=== PATIENT | male | born 1960 | race Caucasian/White ===

== ENCOUNTER 2020-08-07 15:17 | Inpatient (IN) | payer OTHER ==
[~2020-08-07] VITALS: Ht 182.9 cm; Wt 118.6 kg
[2020-08-07] VITALS (187 sets, daily range): BP systolic 141–150; BP diastolic 103–121; PULSE 86–94; TEMP 99–99.1; O2SAT 92–100
--- NOTE | 2020-08-07 15:15 | NUR ---
PT ARRIVES AND AMBULATES TO ICU 6. CHANGED INTO GOWN AND PLACED ON BEDSIDE CONTINUOUS MONITOR. CALL LIGHT EDUCATION GIVEN, VERBALIZED UNDERSTANDING, PLACED WITHIN REACH. URINAL WITHIN REACH. DISCUSSED POC WITH PT, VERBALIZED UNDERSTANDING. VSS.
[2020-08-07] MEDS ORDERED: LOPRESSOR 550 MG/TAB PO (15:55)
[2020-08-07] MEDS ORDERED: LASIX 40MG TABL40 MG PO (15:56)
[2020-08-07] MEDS ORDERED: XARELTO20 MG PO (15:56)
[2020-08-07] MEDS ORDERED: ASPIRIN 81M81 MG/TA2 PO (15:57)
[2020-08-07] MEDS ORDERED: NORVASC 5MG5 MG/TAB PO ×2 (15:57→16:31)
--- NOTE | 2020-08-07 16:25 | NUR ---
SRI GONZALEZ AT BEDSIDE FOR ASSESSMENT AND DISCUSSING POC WITH PT.
[2020-08-07 16:38] LABS: BASO # 0.1 (0.0-0.2); BASO % 0.7 % (0.0-2.0); EOS # 0.1 (0.0-0.7); EOS % 1.2 % (0-4.0); GRAN # 4.9 (1.4-6.5); GRAN % 71.3 % (42.2-75.2); HEMATOCRIT 42.9 % (42.0-52.0); HEMOGLOBIN 13.9 g/dl (13.5-18.0); LYMPH # 1.3 (1.2-3.4); LYMPH % 18.5 % (20.0-51.0); MEAN CELL VOLUME 91 fl (80.0-100.0); MEAN CORPUSCULAR HEMOGLOBIN 30 pg (27.0-31.0); MEAN CORPUSCULAR HGB CONC 32 g/dl (33.0-37.0); MEAN PLATELET VOLUME 10.2 fl (7.4-10.4); MONO # 0.6 (0.1-0.6); MONO % 7.9 % (1.7-9.3); PLATELET COUNT 274 K/mm3 (130-400); REDCELL DISTRIBUTION WIDTH-CV 16.7 % (11.5-14.5)
[2020-08-07 16:55] LABS: ALANINE AMINOTRANSFERASE 23 U/L (4-49); ALBUMIN 4.4 gm/dL (3.5-5.0); ALKALINE PHOSPHATASE 92 U/L (50-136); ANION GAP 11 mmol/L (7-16); AST,SGOT 40 U/L (15-37); BILIRUBIN,TOTAL 1.6 mg/dL (0.0-1.0); BLOOD UREA NITROGEN 25 mg/dL (9-20); CALCIUM 9.2 mg/dL (8.4-10.2); CARBON DIOXIDE 24 mmol/L (22-30); CHLORIDE 102 mmol/L (98-107); CREATININE, serum 1.28 (0.66-1.25); GLUCOSE 104 mg/dL (74-106); PHOSPHOROUS 4.7 mg/dL (2.5-4.5); POTASSIUM 4.5 mmol/L (3.4-5.0); SODIUM 137 mmol/L (137-145); TOTAL PROTEIN 7.9 gm/dL (6.4-8.2)
--- NOTE | 2020-08-07 17:00 | NUR ---
PT HAS CLOTHES, SHOES, PHONE AND WALLET. PT DENIES SAFE AT THIS TIME.
[2020-08-07] MEDS ORDERED: ZYRTEC ALLERGY10 MG PO (17:01)
[2020-08-07 17:09] LABS: TROPONIN-I < 0.012 ng/mL (0.000-0.035)
[2020-08-07 18:20] LABS: MAGNESIUM 1.9 mg/dL (1.6-2.3)
[2020-08-08] VITALS (563 sets, daily range): BP systolic 137–164; BP diastolic 88–137; PULSE 85–160; TEMP 97.5–98.8; O2SAT 88–100
[2020-08-08 05:31] LABS: HEMATOCRIT 41.8 % (42.0-52.0); HEMOGLOBIN 13.5 g/dl (13.5-18.0); MEAN CELL VOLUME 92 fl (80.0-100.0); MEAN CORPUSCULAR HEMOGLOBIN 30 pg (27.0-31.0); MEAN CORPUSCULAR HGB CONC 32 g/dl (33.0-37.0); MEAN PLATELET VOLUME 9.8 fl (7.4-10.4); PLATELET COUNT 245 K/mm3 (130-400); RED BLOOD COUNT 4.54 M/mm3 (4.20-5.60); REDCELL DISTRIBUTION WIDTH-CV 16.4 % (11.5-14.5)
[2020-08-08 05:40] LABS: INR 1.6 (0.8-3.0); PROTHROMBIN TIME 17.5 SECONDS (9.7-12.8)
[2020-08-08 05:42] LABS: CALCIUM 8.8 mg/dL (8.4-10.2); CREATININE, serum 1.12 (0.66-1.25); PARTIAL THROMBOPLASTIN TIME 35.5 SECONDS (26.0-37.0); POTASSIUM 4.3 mmol/L (3.4-5.0)
--- NOTE | 2020-08-08 07:10 | NUR ---
RECEIVED REPORT FROM DASH BELLE. PT RESTING EASILY. CALL LIGHT WITHIN REACH. SEE GTT FLOWSHEET. URINAL WITHIN REACH.
--- NOTE | 2020-08-08 11:29 | NUR ---
Plan to return home independently in [facility]. SW met with patient and DTR Lorna in the room. Patient gave permission to speak infront of DTR, patient reports that he is fairly independent and does not use any DME or services for care. Patient indicated that he drives and that his dtr will transport home. Patient reports that he does not have a PCP but uses [facility] for medications. Patient reports that he has another DTR contact Kasia . Patient reports that he is not opposed to home health if needed. Patient was provided DPOA ppw and educated on use. Will follow up with patient for care.
--- NOTE | 2020-08-08 12:15 | NUR ---
First visit from the transaction processor. prayed with patient. No other needs right now.
--- NOTE | 2020-08-08 13:52 | NUR ---
SW update. patient completed DPOA PPW assigning DTR Madai, was notarized and placed on chart.
--- NOTE | 2020-08-08 14:54 | NUR ---
SEE MERGE DOCUMENATION FOR MEDICATION ADMINISTRATION TIMES AND INTRA/POST PROCEDURE SEDATION ASSESSMENTS.
--- NOTE | 2020-08-08 16:00 | NUR ---
PT TO DIRECTOR AIRPORT AT 1425 WITH DASH URBAN. PT BACK FROM DIRECTOR AIRPORT AT 1600. PLACED BACK ON BEDSIDE CONTINUOUS MONITOR. CALL LIGHT AND URIANL WITHIN REACH. PT DENIES ANY CP/PRESSURE.
--- NOTE | 2020-08-08 16:15 | NUR ---
DR HUMPHREYS AT BEDSIDE DISCUSSING RESULTS WITH PT AND DAUGHTER. RN DICUSSED WITH PHYSICIAN ABOUT POC FOR NITRO GTT. PHYSICIAN STATES WOULD LIKE TO KEEP IN PLACE AND TITRATE ACCORDINGLY FOR AT LEAST 24 HOURS, TILL TOMORROW.
--- NOTE | 2020-08-08 18:30 | NUR ---
Bedside report received from DASH Mojica. All medications verified and all questions answered. 10mls left in TR band. Nurse fitting patient for Life Vest arrived at bedside at 1905. VSS. No concerns or complaints noted from patient at this time. Will resume care at this time.
--- NOTE | 2020-08-08 22:00 | NUR ---
All air removed from TR band. No hematoma or tenderness noted around site. Bandaid placed over site. No active bleeding.
[2020-08-09] VITALS (680 sets, daily range): BP systolic 116–163; BP diastolic 78–121; PULSE 87–101; TEMP 87.7–99.3; O2SAT 86–100
[2020-08-09 05:04] LABS: BASO % 0.6 % (0.0-2.0); EOS % 0.6 % (0-4.0); GRAN # 5.2 (1.4-6.5); GRAN % 77.1 % (42.2-75.2); HEMATOCRIT 40.9 % (42.0-52.0); HEMOGLOBIN 13.5 g/dl (13.5-18.0); LYMPH # 0.8 (1.2-3.4); LYMPH % 11.9 % (20.0-51.0); MEAN CELL VOLUME 90 fl (80.0-100.0); MEAN CORPUSCULAR HEMOGLOBIN 30 pg (27.0-31.0); MEAN CORPUSCULAR HGB CONC 33 g/dl (33.0-37.0); MONO # 0.6 (0.1-0.6); MONO % 9.5 % (1.7-9.3); PLATELET COUNT 232 K/mm3 (130-400); RED BLOOD COUNT 4.55 M/mm3 (4.20-5.60); REDCELL DISTRIBUTION WIDTH-CV 15.9 % (11.5-14.5)
[2020-08-09 05:14] LABS: CALCIUM 8.7 mg/dL (8.4-10.2); CREATININE, serum 1.05 (0.66-1.25)
--- NOTE | 2020-08-09 07:00 | NUR ---
RECEIVED REPORT FROM DASH IRENE. ASSUMED CARE OF PT AT THIS TIME.
--- NOTE | 2020-08-09 08:15 | NUR ---
pt reports tongue swelling. pt states he develops tongue swelling intermittently when he is stressed. states he takes zyrtec at home when swelling occurs. tongue swelling noted. no respiratory distress noted. sp02 95% on room air. ZA Villa at bedside to assess pt. changes made to pt's medications. see MAR for details.
--- NOTE | 2020-08-09 10:25 | NUR ---
PT STATES SWELLING HAS NOW SPREAD INTO THROAT AND NECK. VISIBLE SWELLNG TONECK NOTED. SPO2 99% ON RA. CONTACTED ZA GONZALEZ TO NOTIFY. SEE MAR FOR TELEPHONIC NURSE CASE MANAGER DETAILS.
--- NOTE | 2020-08-09 12:20 | NUR ---
Dr. Bertrand at bedside speaking with pt.
--- NOTE | 2020-08-09 13:00 | NUR ---
PT STATES HE IS "FEELING A 100% BETTER." TOLERATING FOOD/LIQUID INTAKE. SWELLING TO NECK APPEARS DECREASED AND PT REPORTS EASIER TO SPEAK.
--- NOTE | 2020-08-09 16:30 | NUR ---
PT'S NITRO GTT STOPPED AT THIS TIME PER ZA GONZALEZ.
--- NOTE | 2020-08-09 19:41 | NUR ---
Received report from DASH Ocampo. All medications verified and all questions answered. Patient laying in bed watching TV. No concerns or complaints noted at this time. VSS. Will resume care at this time.
[2020-08-10] VITALS (267 sets, daily range): BP systolic 130–158; BP diastolic 86–111; PULSE 93–100; TEMP 97.7–98.7; O2SAT 89–100
[2020-08-10 05:55] LABS: CALCIUM 9.7 mg/dL (8.4-10.2); CREATININE, serum 0.9 (0.66-1.25); POTASSIUM 4.4 mmol/L (3.4-5.0)
--- NOTE | 2020-08-10 07:00 | NUR ---
PT RESTING IN BED. VSS. NO DRIPS RUNNING. WILL CONTINUE TO MONTIOR.
[2020-08-10 08:04] LABS: BASO % 0.1 % (0.0-2.0); GRAN # 7.2 (1.4-6.5); GRAN % 87.2 % (42.2-75.2); HEMATOCRIT 50.3 % (42.0-52.0); LYMPH # 0.6 (1.2-3.4); LYMPH % 7.6 % (20.0-51.0); MEAN CELL VOLUME 90 fl (80.0-100.0); MEAN CORPUSCULAR HEMOGLOBIN 30 pg (27.0-31.0); MEAN CORPUSCULAR HGB CONC 33 g/dl (33.0-37.0); MEAN PLATELET VOLUME 10.3 fl (7.4-10.4); MONO # 0.4 (0.1-0.6); MONO % 4.7 % (1.7-9.3); PLATELET COUNT 315 K/mm3 (130-400); RED BLOOD COUNT 5.57 M/mm3 (4.20-5.60); REDCELL DISTRIBUTION WIDTH-CV 16.5 % (11.5-14.5)
[2020-08-10 08:05] LABS: HEMOGLOBIN 16.6 g/dl (13.5-18.0)
[2020-08-10] MEDS ORDERED: CORDARONE200 MG/TAB PO (10:01)
[2020-08-10] MEDS ORDERED: LANOXIN 0.25M0.25 MG PO (10:01)
[2020-08-10] MEDS ORDERED: APRESOLINE 25MG25 MG PO (10:02)
[2020-08-10] MEDS ORDERED: ALDACTONE 25MG25 M1 PO (10:02)
--- NOTE | 2020-08-10 11:00 | NUR ---
IV AND TELE DC'D. DISCHARGE INSTRUCTIONS AND DISCHARGE MEDS DISCUSSED WITH PT. ALL QUESTIONS ANSWERED. PT TO CALL WEDNESDAY FOR FOLLOW UP. PT WEARING LIFE VEST THAT WAS PREVIOUSLY SET UP. PT REMINDED TO UNCLAIMED PROPERTY MANAGER HOME MEDICATIONS. PT WHEELED OUT TO PERSONAL VEHICLE FOR DISCHARGE.
== END 2020-08-10 11:15 | disposition home or self-care (01) | DRG 286 ==
LOC: COL.ER 15:17 → EDSTATUS 15:21 → ICU 15:33
PROVIDERS: Nurse Practitioner; ADMIT Internal Medicine Interventional Cardiology
PROC: 4A023N7 Measurement of Cardiac Sampling and Pressure, Left Heart, Percutaneous Approach (ICD-10-PCS; principal; 2020-08-08)
PROC: B2111ZZ Fluoroscopy of Multiple Coronary Arteries using Low Osmolar Contrast (ICD-10-PCS; 2020-08-08)
PROC: 5A2204Z Restoration of Cardiac Rhythm, Single (ICD-10-PCS; 2020-08-08)
DX: I48.19 Other persistent atrial fibrillation (principal); I50.23 Acute on chronic systolic (congestive) heart failure; I11.0 Hypertensive heart disease with heart failure; I42.0 Dilated cardiomyopathy; I25.10 Atherosclerotic heart disease of native coronary artery without angina pectoris; E78.5 Hyperlipidemia, unspecified; E80.6 Other disorders of bilirubin metabolism; Z20.822 Contact with and (suspected) exposure to COVID-19; Z79.01 Long term (current) use of anticoagulants; Z79.82 Long term (current) use of aspirin
CPT/HCPCS: C1769; C1887; J0360; J1200; J1644; J2930; J3010; J7030